=== PATIENT | male | born 1975 | race Caucasian/White ===

== ENCOUNTER 2020-07-08 19:49 | Emergency (ER) | payer OTHER ==
[~2020-07-08] VITALS: Ht 182.9 cm; Wt 86.2 kg
[2020-07-08] MEDS ORDERED: DOXYCYCLINE HY100 MG PO (21:16)
== END 2020-07-08 21:25 | disposition home or self-care (01) ==
LOC: ED 19:49
DX: L08.9 Local infection of the skin and subcutaneous tissue, unspecified (principal); F17.200 Nicotine dependence, unspecified, uncomplicated; Z88.5 Allergy status to narcotic agent
CPT/HCPCS: 99282